=== PATIENT | male | born 1970 | race Caucasian/White ===

== ENCOUNTER 2016-12-05 10:10 | Emergency (ER) | payer OTHER ==
[~2016-12-05] VITALS: Wt 88.6 kg
[~2016-12-05 10:10] MED LIST: CIPR7.5D4 LEFT EAR
[2016-12-05] MEDS ORDERED: LIDOCAINE 1% (MDV) 20 ML INJ SC ONE (11:00)
--- NOTE | 2016-12-05 12:33 | RADRPT ---
PROCEDURE: XR Foot. CLINICAL INDICATION: Left foot pain and fever TECHNIQUE: 3 views of the left foot are available for review. COMPARISON: None available FINDINGS: The osseous structures demonstrate normal alignment and mineralization. No acute fracture or disloc ation is seen. There is no periostitis or osteochondral lesion identified. 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 The joint spaces are well preserved. The soft tissues are unremarkabl e. IMPRESSION: Small plantar and posterior calcaneal spurs. Otherwise, unremarkable left foot x-rays. RPTAT: HH .Jasmyne Coon MD, MD Date Time Electronically viewed and signed by .Jasmyne Coon MD, on 12/05/2016 12:32 .G/
[2016-12-05] MEDS ORDERED: SULF1TAB31 PO (12:54)
[2016-12-05] MEDS ORDERED: CEPH-443 PO (12:54)
[2016-12-05] MEDS ORDERED: HYDR-906 PO (12:54)
[2016-12-05 13:16] VITALS: BP 121/84; PULSE 79; RESP 18; TEMP 97.9
--- NOTE | 2016-12-07 05:25 | ERA ---
ER Documentation Chief Complaint Date/Time DATE: 12/07/16 TIME: 05:20 Chief Complaint toenail pain HPI This is a 46-year-old male presenting with a chief complaint of toe pain/ ingrown toenail. Patient has not had similar symptoms in the past. Patient has not done anything to relieve the symptoms. Patient also complains of foul smell and drainage. Pain is 7 out of 10 with ambulation/pressure. Patient has no other complaints and describes no other associated manifestations. ROS All systems reviewed and are negative except as per history of present illness. Medications Home Meds Active Scripts Cephalexin* (Keflex*) 500 Mg Capsule, 500 MG PO QID for 5 Days, CAP Prov:HERON ROJAS PA-C 12/05/16 Hydrocodone/Acetaminophen (Fayette 5-325 Tablet) 1 Each Tablet, 1 TAB PO Q6H Y for PAIN, #20 TAB Prov:HERON ROJAS PA-C 12/05/16 Sulfamethoxazole/Trimethoprim* (Bactrim Ds* Tablet) 1 Each Tablet, 1 TAB PO BID , #14 TAB Prov:HERON ROJAS PA-C 12/05/16 Ciprofloxacin Hcl/Dexameth (Ciprodex Otic Suspension) 7.5 Ml Drops.susp, 4 DROP LEFT EAR BID for 7 Days, EA Prov:SASHA POWER PA-C 01/18/16 Allergies Allergies: Coded Allergies: No Known Allergy (Unverified , 01/18/16) PMhx/Soc Medical and Surgical Hx: pt denies Surgical Hx History of Surgery: No Anesthesia Reaction: No Hx Neurological Disorder: No Hx Respiratory Disorders: No Hx Cardiac Disorders: No Hx Psychiatric Problems: No Hx Miscellaneous Medical Probl: Yes (EYE PROBLEM) Hx Alcohol Use: No Hx Substance Use: No Hx Tobacco Use: No Smoking Status: Never smoker Physical Exam Vitals Vital Signs Date Time Temp Pulse Resp B/P Pulse Ox O2 Delivery O2 Flow Rate FiO2 12/05/16 13:16 97.9 79 18 121/84 98 Room Air 12/05/16 10:16 98.9 99 20 108/80 98 Physical Exam Const: Well-appearing Pashto-speaking male Head: Atraumatic Eyes: Normal Conjunctiva. Wears heavy glasses. ENT: Normal External Ears, Nose and Mouth. Neck: Full range of motion..~ No meningismus. Resp: Clear to auscultation bilaterally Cardio: Regular rate and rhythm, no murmurs Abd: Soft, non tender, non distended. Normal bowel sounds Skin: No petechiae or rashes Back: No midline or flank tenderness Ext: Left first digit toe ingrown toenail. Most of the toenail was already removed with just the mid distal and lateral portions sticking out. There is yellow discharge on top of the foot. No fluctuance noted. No cyanosis, or edema Neur: Awake and alert Psych: Normal Mood and Affect Results 24 hrs Current Medications Medications (Trade) Dose Ordered Sig/Saúl Route PRN Reason Start Time Stop Time Status Last Admin Dose Admin Lidocaine (Xylocaine 1% (Mdv) 20 ml) 20 ml ONCE ONCE SC 12/05/16 11:00 12/05/16 11:01 DC Procedures/MDM Patient is a 46-year-old male presenting with signs and symptoms most consistent with ingrown toenail and cellulitis. X-ray was taken to rule out osteomyelitis read by the radiologist and given the impression of unremarkable. 6 mL of lidocaine without epi was used for digital block. Incision and drainage kit was used to remove the toenail. Toenail was removed in 3 separate parts 1 at the proximal and in the center and 2 smaller pieces on the lateral edges. There were no complications. PA student Aly assisted in the procedures. Wound was then cleaned and covered with antibiotic ointment and wrapped by the nursing staff. Neurovascularly intact before and after the procedure. Full range of motion. Patient will be given Bactrim, Keflex and Fayette for discomfort. I have spoke with the patient regarding their condition and future management. They have verbally responded that they understand their status and treatment plan. The patients vitals are stable, and their current condition is appropriate for discharge. The patient will be given discharge instructions with return precautions. Departure Diagnosis: Primary Impression: Nail bed infection Additional Impression: Ingrown toenail Condition: Stable Patient Instructions: Ingrown Toenail, Excised Additional Instructions: Follow up with your PCP within the next 1-3 days for a more thorough evaluation and a possible referral to a specialist. Return the the emergency department immediately if symptoms worsen or change. If you have any questions regarding medications, ask your pharmacist or us before you leave. If any adverse reactions occur while taking your medications, discontinue the treatment and return to the emergency department immediately. Take your medications as directed, and complete the entire course of treatment. HERON ROJAS PA-C Dec 07, 2016 05:25
== END 2016-12-05 13:17 | disposition home or self-care (01) ==
LOC: FTE 10:10
DX: L60.0 Ingrowing nail (principal)
CPT/HCPCS: 11750; 73630; Z7502; Z7610

== ENCOUNTER 2018-07-09 08:27 | Emergency (ER) | payer OTHER ==
[~2018-07-09] VITALS: Ht 167.6 cm; Wt 79.8 kg
[~2018-07-09 08:27] MED LIST changes: +CEPH-443 PO; +CIPR7.5D LEFT EAR; -CIPR7.5D4 LEFT EAR; +HYDR-4011 PO; +SULF1TAB31 PO
[2018-07-09 08:40] VITALS: BP 132/93; PULSE 89; RESP 18; Ht 167.6 cm; Wt 79.8 kg
[2018-07-09] MEDS ORDERED: IBUP-1542 PO (09:41)
--- NOTE | 2018-07-09 13:09 | ERD ---
ER Documentation Chief Complaint Chief Complaint C/O HTN WHEN HAD A H/A. NO PAIN THIS TIME, WANTS BP MED. HPI This is a 47-year-old male history of cataract surgery bilaterally presenting to the ED with no sign of medical problems stating that anytime he gets a headache at moderate severity he checks his blood pressure and elevated. Patient presents asking for blood pressure medications. He denies headache. He denies any neuro deficits. Denies any vision changes. ROS All systems reviewed and are negative except as per history of present illness. Medications Home Meds Active Scripts Ibuprofen* (Motrin*) 600 Mg Tab, 600 MG PO Q6H PRN for PAIN AND OR ELEVATED TEMP, #30 TAB Prov:DONAVON CAMACHO PA-C 07/09/18 Cephalexin* (Keflex*) 500 Mg Capsule, 500 MG PO QID for 5 Days, CAP Prov:HERON ROJAS PA-C 12/05/16 Hydrocodone/Acetaminophen ([place] 5-325 Tablet) 1 Each Tablet, 1 TAB PO Q6H PRN for PAIN, #20 TAB Prov:HERON ROJAS PA-C 12/05/16 Sulfamethoxazole/Trimethoprim* (Bactrim Ds* Tablet) 1 Each Tablet, 1 TAB PO BID, #14 TAB Prov:HERON ROJAS PA-C 12/05/16 Ciprofloxacin Hcl/Dexameth (Ciprodex Otic Suspension) 7.5 Ml Drops.susp, 4 DROP LEFT EAR BID for 7 Days, EA Prov:SASHA POWER PA-C 01/18/16 Allergies Allergies: Coded Allergies: No Known Allergy (Unverified , 07/09/18) PMhx/Soc Medical and Surgical Hx: pt denies Surgical Hx History of Surgery: No Anesthesia Reaction: No Hx Neurological Disorder: No Hx Respiratory Disorders: No Hx Cardiac Disorders: No Hx Psychiatric Problems: No Hx Miscellaneous Medical Probl: Yes (EYE PROBLEM) Hx Alcohol Use: No Hx Substance Use: No Hx Tobacco Use: No Smoking Status: Never smoker Physical Exam Vitals Vital Signs Date Temp Pulse Resp B/P (MAP) Pulse Ox O2 O2 Flow FiO2 Time Delivery Rate 07/09/18 98.0 89 18 132/93 99 08:40 (106) Physical Exam GENERAL: well-developed/well-nourished, in no apparent distress, non-toxic appearing HENT: NC/AT, bilateral tympanic membrane is normal with good cone of light, nares patent, oropharynx clear without exudates EYES: Conjunctiva normal, PERRLA, EOMI, no nystagmus noted NECK: Supple, no lymphadenopathy PULM: CTA bilaterally, no rales, rhonchi, or wheezing heard CV: Normal S1S2, RRR, good capillary refill GI: Soft, non-distended, normal bowel sounds, non-tender BACK: No midline tenderness, no masses, No CVAT EXT: No clubbing, cyanosis, or edema NEURO: Alert and orientated to person, place, and time. CN II-IIX intact. Gait and coordination were normal. 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 Patient states that every time he has a headache his blood pressure is elevated. He denies headache currently. Patient had a normal neurologic exam, he looks well and stable to be discharged home. Patient's blood pressure was elevated (>120/80) but appears stable without evidence of hypertension emergency or urgency. The patient was counseled about the risks of hypertension and urged to pursue outpatient monitoring and therapy within a week with their primary care physician. Departure Diagnosis: Primary Impression: Headache Condition: Stable Patient Instructions: Self-Care for Headaches, Understanding Headache Pain, High Blood Pressure (Hypertension), Headache, Unspecified Referrals: [facility] Usted se esteban hecho un examen mdico de control que le indica que no est en odalis condicin que requiera tratamiento urgente en el Departamento de Emergencia. Un estudio ms profundo y el tratamiento de pride condicin pueden esperar sin ningn riesgo hasta que usted sea atendida/o en el consultorio de pride mdico o odalis clnica. Es responsabilidad suya arreglar odalis tip para el seguimiento del shoshana. MANEJO DE CONDICIONES NO URGENTES EN EL FUTURO 1) Si usted tiene un mdico de atencin primaria: Usted debera llamar a pride mdico de atencin primaria antes de venir al departamento de emergencia. Despus de las horas de consultorio, pride doctor o pride asociado/a est disponible por telfono. El mdico o enfermero de libertad en el servicio telefnico puede asesorarle por judith medio para atender el problema, o shoshana contrario se puede programar odalis tip. 2) Si usted no tiene un mdico de atencin primaria: Llame al mdico o clnica de referencia que aparece abajo inna las horas de consultorio para hacer odalis tip para que le vean. CLINICAS: [place] [id number] [phone] [facility] [phone] [place] [address] [phone] [place] [id number] [phone] [facility] [address] [place] [address] [phone] [facility] [phone] [address] Additional Instructions: Visite a pride mdico maana para un EXAMEN.Regrese a estas instalaciones si no se mejora honorio esperbamos o honorio le dijimos. Regrese a estas instalaciones si no se mejora honorio esperbamos o honorio le dijimos. DONAVON CAMACHO PA-C Jul 09, 2018 13:09
== END 2018-07-09 10:12 | disposition home or self-care (01) ==
LOC: FTE 08:27
DX: R51 Headache (principal)
CPT/HCPCS: 99282